=== PATIENT | female | born 1960 | race Caucasian/White ===

== ENCOUNTER 2021-08-13 10:06 | Emergency (ER) | payer BC ==
[2021-08-13 10:40] LABS: BASOPHILS # (AUTO) 0.1 10^3/uL (0.0-0.1); BASOPHILS % (AUTO) 1.2 %; EOSINOPHILS # (AUTO) 0.1 10^3/uL (0.0-0.7); HCT - HEMATOCRIT 44.8 % (37.0-47.0); HGB - HEMOGLOBIN 14.6 g/dL (12.0-16.0); LYMPHOCYTES # (AUTO) 1.5 10^3/uL (1.5-3.5); MEAN CORPUSCULAR HEMOGLOBIN 31.4 pg (27.0-31.0); MEAN CORPUSCULAR HGB CONC 32.6 g/dL (32.0-36.0); MEAN CORPUSCULAR VOLUME 96.3 fL (81.0-99.0); MEAN PLATELET VOLUME 10.3 fL (7.9-10.8); MONOCYTES # (AUTO) 0.5 10^3/uL (0.0-1.0); MONOCYTES % (AUTO) 9.3 %; NEUTROPHILS # (AUTO) 2.9 10^3/uL (1.5-6.6); NEUTROPHILS % (AUTO) 57.3 %; PLT - PLATELET COUNT 240 10^3/uL (130-450); RED BLOOD COUNT 4.65 10^6/uL (4.20-5.40)
--- NOTE | 2021-08-13 10:47 | ED Physician Documentation ---
PD HPI ABD PAIN - Stated complaint Stated Complaint: CHEST PX - Chief complaint Chief Complaint: Abd Pain - Additional information Additional information: 61-year-old female presenting to the emergency department with 1 week history lower abdominal cramping and diarrhea. Reports has had symptoms ongoing since last Wednesday. Denies recent antibiotics, camping, travel, unusual foods. States multiple nonbloody nonmucoid bowel movements daily. Does report one episode in which she had subjective fever but denies any recurrent fever or measured elevated temperature at home. He denies any nausea or vomiting. States does not regularly follow with primary care. Was feeling somewhat better until she woke this morning to a fluttering sensation in her chest which is what prompted her to come in to the emergency department. Review of Systems Ten Systems: 10 systems reviewed and negative Ears: denies: Loss of hearing Nose: denies: Rhinorrhea / runny nose Throat: denies: Dental pain / toothache Cardiac: reports: Palpitations. denies: Chest pain / pressure Respiratory: denies: Dyspnea, Cough GI: reports: Abdominal Pain. denies: Nausea, Vomiting, Diarrhea : reports: Dysuria PD PAST MEDICAL HISTORY - Present Medications Home Medications: Ambulatory Orders Medication Instructions Recorded Confirmed Dicyclomine [Bentyl] 10 mg PO ONCE #30 cap 08/13/21 Loperamide [Imodium] 2 mg PO BID #30 cap 08/13/21 Ondansetron Odt [Zofran Odt] 4 mg TL Q6H PRN #10 tablet 08/13/21 - Allergies Allergies/Adverse Reactions: Allergies Allergy/AdvReac Type Severity Reaction Status Date / Time codeine Allergy Nausea Verified 08/13/21 10:11 PD ED PE NORMAL - Vitals Vital signs reviewed: Yes - General General: Alert and oriented X 3 - HEENT HEENT: Atraumatic - Neck Neck: Supple, no meningeal sign - Cardiac Cardiac: RRR - Respiratory Respiratory: No respiratory distress - Abdomen Abdomen: Normal bowel sounds, Soft, Non tender - Female Female : Deferred - Derm Derm: Normal color - Extremities Extremities: No deformity - Neuro Neuro: Alert and oriented X 3, 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 No: Prolonged QT Ischemia: Other (LAFB) Compare to prior EKG: Old EKG unavailable - Labs Labs: Laboratory Tests 08/13/21 08/13/21 08/13/21 10:34 10:34 10:38 WBC 5.0 RBC 4.65 Hgb 14.6 Hct 44.8 MCV 96.3 MCH 31.4 H MCHC 32.6 RDW 12.0 Plt Count 240 MPV 10.3 Neut # (Auto) 2.9 Lymph # (Auto) 1.5 Hendry # (Auto) 0.5 Eos # (Auto) 0.1 Baso # (Auto) 0.1 Absolute Nucleated RBC 0.00 Nucleated RBC % 0.0 Sodium 141 Potassium 3.8 Chloride 105 Carbon Dioxide 26 Anion Gap 10.0 BUN 9 Creatinine 0.7 Estimated GFR (MDRD) 85 L Glucose 103 H Calcium 9.7 Total Bilirubin 1.4 H AST 31 ALT 29 Alkaline Phosphatase 72 Total Protein 7.2 Albumin 4.3 Globulin 2.9 Albumin/Globulin Ratio 1.5 Lipase 35 Urine Color YELLOW Urine Clarity CLEAR Urine pH 5.5 Ur Specific Russell 1.020 Urine Protein NEGATIVE Urine Glucose (UA) NEGATIVE Urine Ketones NEGATIVE Urine Occult Blood NEGATIVE Urine Nitrite NEGATIVE Urine Bilirubin NEGATIVE Urine Urobilinogen 0.2 (NORMAL) Ur Leukocyte Esterase NEGATIVE Ur Microscopic Review NOT INDICATED Urine Culture Comments NOT INDICATED PD MEDICAL DECISION MAKING - ED course Complexity details: reviewed results, d/w patient ED course: Patient is a 61-year-old female presenting to the emergency department with 1 week history of intermittent lower abdominal cramping as well as nonbloody nonmucoid diarrhea. Patient also endorsed for fluttering sensation in her chest earlier tonight. Denied any chest pain. EKG is on above was negative for i ndications of acute cardiac ischemia or dysrhythmia. Comprehensive labs obtained were generally within normal limits are nonactionable. And CT of the abdomen pelvis was negative for any acute pathology. Patient was given dose of Bentyl in the emergency department which she said that did help her with her abdominal cramping. Most likely etiology is a gastrointestinal infection, likely viral. At this time I will discharge for medications for symptomatic management. Additionally I will provide the patient contact information for local area primary care doctor with whom she can establish yourself. Otherwise clear return precautions and follow-up instructions were given prior to discharge. Departure - Departure Disposition: Home, Self Care Clinical Impression: Diarrhea, Heart palpitations Condition: Good Instructions: Abdominal Pain, ED Diarhhea Viral Ch Follow-Up: Sugar Lemus MD [Provider Admit Priv/Credential] - Prescriptions: Dicyclomine [Bentyl] 10 mg PO ONCE #30 cap Loperamide [Imodium] 2 mg PO BID #30 cap Ondansetron Odt [Zofran Odt] 4 mg TL Q6H PRN #10 tablet PRN Reason: Nausea / Vomiting Comments: Thank you for allowing us to care for you today at [facility]. All of the testing performed in the emergency department today including your EKG, urine analysis and the CT scan performed of your abdomen and pelvis were all very reassuring. I will be discharging of some medications he can take at home. Have also included contact information for a primary care doctor for you to follow-up with. If it anytime you have any new or worsening symptoms please not hesitate to return to the emergency department. Discharge Date/Time: 08/13/21 15:27
[2021-08-13 10:54] LABS: BILIRUBIN,URINE NEGATIVE (NEGATIVE); GLUCOSE, URINE (UA) NEGATIVE (NEGATIVE); KETONES,URINE (UA) NEGATIVE (NEGATIVE); LEUKOCYTE ESTERASE, URINE NEGATIVE (NEGATIVE); NITRITE,URINE NEGATIVE (NEGATIVE); OCCULT BLOOD,URINE NEGATIVE (NEGATIVE); PH,URINE 5.5 PH (5.0-7.5); PROTEIN,URINE NEGATIVE (NEGATIVE); UROBILINOGEN,URINE 0.2 (NORMAL) E.U./dL (NORMAL)
[2021-08-13 10:55] LABS: CLARITY,URINE CLEAR (CLEAR)
[2021-08-13 11:01] LABS: ALBUMIN 4.3 g/dL (3.2-5.5); ALBUMIN/GLOBULIN RATIO 1.5 (1.0-2.2); BILIRUBIN,TOTAL 1.4 mg/dL (0.2-1.0); CALCIUM 9.7 mg/dL (8.5-10.3); CREATININE 0.7 mg/dL (0.4-1.0); POTASSIUM 3.8 mmol/L (3.5-5.0); TOTAL PROTEIN 7.2 g/dL (6.7-8.2)
[2021-08-13] MEDS: DICYCLOMINE 10 MG CAPSULE PO STA (13:41)
[2021-08-13] MEDS ORDERED: IOPAMIDOL-300 100 ML VIAL ONE (14:18)
--- NOTE | 2021-08-13 14:55 | CT Report ---
PROCEDURE: Abdomen/Pelvis W INDICATIONS: Persistent abdominal pain CONTRAST: IV CONTRAST: Isovue 300 ml: 100 PO CONTRAST: *NO PO CONTRAST TECHNIQUE: After the administration of oral and intravenous contrast, 5 mm thick sections acquired from the diap hragms to the symphysis. 5 mm thick coronal and sagittal reformats were acquired. For radiation dos e reduction, the following was used: automated exposure control, adjustment of mA and/or kV accordin g to patient size. COMPARISON: None. FINDINGS: Image quality: Excellent. ABDOMEN: Lung bases: Lung bases are clear. Heart size is normal. Solid organs: Liver and spleen are normal in size and enhancement. Gallbladder is unremarkable. Bi liary system is non dilated. Pancreas enhances normally. No adrenal nodules. Kidneys demonstrate n ormal size and enhancement, without hydronephrosis. Peritoneum and bowel: Bowel loops demonstrate normal wall thickness and caliber. No free fluid or a ir. Scattered diverticulosis without evidence of diverticulitis. Nodes and vessels: No retroperitoneal or mesenteric adenopathy by size criteria. Aorta and inferior vena cava are normal in size. Incidental note made of the presence of a circumaortic left renal vei n. Miscellaneous: No ventral hernias. PELVIS: Genitourinary: Bladder wall thickness is normal. Miscellaneous: No inguinal hernias or adenopathy. Bones: No suspicious bony lesions. No vertebral body compression fractures. IMPRESSION: 1. Scattered diverticulosis without evidence of diverticulitis. 2. No evidence of acute abdominal process. Reviewed by: Maurice Garza MD on 08/13/2021 2:54 PM PST Approved by: Maurice Garza MD on 08/13/2021 2:54 PM PST Station ID: [id number]
[2021-08-13 15:22] VITALS: BP 124/70
[2021-08-13] MEDS: IOPAMIDOL-300 100 ML VIAL IVP ONE (20:41)
== END 2021-08-13 15:27 | disposition home or self-care (01) ==
LOC: ED 10:06
DX: R19.7 Diarrhea, unspecified (principal); R00.2 Palpitations
CPT/HCPCS: 36415; 74177; 80053; 81003; 83690; 85025; 93005; 99283; 99284; A9270; Q9967; 81001; 87086